=== PATIENT | male | born 1975 | race Caucasian/White ===

== ENCOUNTER 2017-01-19 11:12 | Emergency (ER) | payer BC ==
[2017-01-19] MEDS ORDERED: Tetan/Diph/Pertus SYR(Tdap)* 0.5 ML SYR(BOOSTRIX) use SYR IM ONE (12:13)
[2017-01-19] MEDS ORDERED: Lidocaine 1% MPF* 2 ML VIAL INJ ONE (12:18)
--- NOTE | 2017-01-19 12:24 | UC ---
Laceration HPI - HPI Summary HPI Summary: patient cut the pal of his right hand on a drill bit, needs a tetanus, 2.5 cm laceration, bleeding is controlled. - History Of Current Complaint Chief Complaint: UCLaceration Stated Complaint: HAND LAC Time Seen by Provider: 01/19/17 12:15 Hx Obtained From: Patient Laceration Location: Hand Mechanism Of Injury: Sharp Trauma Onset/Duration: Lasting Hours Severity: Moderate Aggravating Factors: Position, Movement Related History: Dominant Hand Right - Allergies/Home Medications Allergies/Adverse Reactions: Allergies Allergy/AdvReac Type Severity Reaction Status Date / Time cats Allergy Intermediate itchy Uncoded 01/19/17 11:58 eyes, congestion PMH/Surg Hx/FS Hx/Imm Hx Previously Healthy: Yes Endocrine History Of: Denies: Diabetes, Thyroid Disease Cardiovascular History Of: Denies: Cardiac Disorders, Hypertension, Pacemaker/ICD Respiratory History Of: Denies: COPD, Asthma GI/ History Of: Denies: Ulcer, Renal Disease - Surgical History Surgical History: Yes Surgery Procedure, Year, and Place: [facility]; - Family History Known Family History: Positive: Hypertension - Social History Alcohol Use: Daily Substance Use Type: None Smoking Status (MU): Never Smoked Tobacco - Immunization History Most Recent Tetanus Shot: NEEDS ONE Review of Systems Constitutional: Negative Skin: Other - laceration Eyes: Negative ENT: Negative Respiratory: Negative Cardiovascular: Negative Gastrointestinal: Negative Genitourinary: Negative Motor: Negative Neurovascular: Negative Musculoskeletal: Negative Neurological: Negative Psychological: Negative All Other Systems Reviewed And Are Negative: Yes Physical Exam Triage Information Reviewed: Yes Appearance: Well-Appearing, Well-Nourished, Pain Distress Vital Signs: Initial Vital Signs Temp 97.8 F 01/19/17 12:00 Pulse 69 01/19/17 12:00 Resp 16 01/19/17 12:00 Pulse Ox 99 01/19/17 12:00 Vital Signs Reviewed: Yes Eye Exam: Normal Eyes: Positive: Conjunctiva Clear ENT Exam: Normal ENT: Positive: Hearing grossly normal, Pharynx normal, TMs normal Dental Exam: Normal Neck exam: Normal Neck: Positive: Supple, Nontender, No Lymphadenopathy Respiratory Exam: Normal Respiratory: Positive: Chest non-tender, Lungs clear, Normal breath sounds Cardiovascular Exam: Normal Cardiovascular: Positive: RRR, No Murmur, Pulses Normal Abdominal Exam: Normal Abdomen Description: Positive: Nontender, No Organomegaly, Soft Bowel Sounds: Positive: Present Musculoskeletal Exam: Normal Musculoskeletal: Positive: Strength Intact, ROM Intact, No Edema Neurological Exam: Normal Neurological: Positive: Alert, Muscle Tone Normal Psychological Exam: Normal Skin: Positive: Other - msall simple 2.5 cm laceration on palme of right hand Laceration Repair - Laceration Repair 1 Laceration Size After Repair: Length (cm) - 2.5 Modified For Repair: No Type Injection: Local Cleansing Completed Via Routine Prep: No Irrigation With Pressure Irrigation Device: Yes Closure Material: Sutures - 2 Closure Method: Single Layer Suture Of: Skin Suture Type: Chromic Laceration Course/Dx - Course/Dx Course Of Treatment: hx obtained, exam performed, meds reviewed, tetanus updated , laeration cleansed, repaired and dressed. - Differential Dx - Laceration/Wound Differental Diagnoses: Cellulitis, Laceration, Puncture Wound, Tenosynovitis Provider Diagnoses: 2.5 cm laceration of the right hand Discharge - Discharge Plan Condition: Stable Disposition: HOME Patient Education Materials: Care For Your Stitches (ED), Laceration (ED) Additional Instructions: 1. keep the area clean and dry, 2 Return in 7- 10 days for suture removal, sooner for any sign of infection.
== END 2017-01-19 13:05 | disposition home or self-care (01) ==
LOC: UCEAST 11:12
DX: S61.411A Laceration without foreign body of right hand, initial encounter (principal); W27.8XXA Contact with other nonpowered hand tool, initial encounter; Y93.9 Activity, unspecified; Y92.9 Unspecified place or not applicable; Z23 Encounter for immunization
CPT/HCPCS: 12001; 90471; 90715; 99212; G0463

== ENCOUNTER 2017-11-01 21:00 | Observation (INO) | payer BC ==
[2017-11-01] MEDS ORDERED: NS 0.9% 1000 ML* 1,000 ML IV ONE (21:31)
[2017-11-01] MEDS ORDERED: Metoclopramide IV* 5 MG/ML 2 ML VIAL IV SLOW PU ONE (21:32)
[2017-11-01] MEDS ORDERED: Ketorolac INJ* 30 MG/ML 1 ML VIAL IV PUSH ONE (21:32)
[2017-11-01 21:40] LABS: ABS Basophils 0 10^3/ul (0-0.2); ABS Eosinophils 0.2 10^3/ul (0-0.6); ABS Monocytes 1.2 10^3/ul (0-0.8); ABS Neutrophils 8.1 10^3/ul (1.5-7.7); ABS Nucleated RBC 0 10^3/ul; Eosinophil % 1.9 % (0-6); Hematocrit 43 % (42-52); Hemoglobin 14.8 g/dl (14.0-18.0); Lymphocyte % 17.6 % (25-47); Mean Corpuscular HGB Conc 35 g/dl (31-36); Mean Corpuscular Hemoglobin 32 pg (27-31); Mean Corpuscular Volume 91 fL (80-94); Mean Platelet Volume 9 um3 (7.4-10.4); Nucleated Red Blood Cells % 0; Platelet Count 170 10^3/ul (150-450); Red Blood Count 4.69 10^6/ul (4.0-5.4); Red Cell Distribution Width 13 % (10.5-15); White Blood Count 11.6 10^3/ul (3.5-10.8)
[2017-11-01 21:54] LABS: EGFR Non-African American 85.1 (>60)
--- NOTE | 2017-11-01 23:04 | ED ---
Arturo Fuentes Gabriel, scribed for Modesta Connolly MD on 11/01/17 at 2155 . GI/ HPI - HPI Summary HPI Summary: This patient is a 42 year old M presenting to [facility] accompanied by his partner with a chief complaint of right scrotal pain and swelling that began today. The patient rates the pain 3/10 in severity. Patient reports ABD pain, nausea, fever , and diarrhea. Pt just returned from [place] today. - History of Current Complaint Chief Complaint: EDUrogenitalProblems Time Seen by Provider: 11/01/17 21:19 Stated Complaint: GROIN PAIN Hx Obtained From: Patient Onset/Duration: Still Present Timing: Constant Severity: Mild Current Severity: Mild Pain Intensity: 3 Location of Pain: Diffuse Additional Locations for Males: Scrotum, Testicles Associated Signs and Symptoms: Positive: Other: - ABD pain, nausea, fever, and diarrhea - Allergy/Home Medications Allergies/Adverse Reactions: Allergies Allergy/AdvReac Type Severity Reaction Status Date / Time cats Allergy Intermediate itchy Uncoded 01/19/17 11:58 eyes, congestion PMH/Surg Hx/FS Hx/Imm Hx Endocrine/Hematology History: Denies: Hx Diabetes, Hx Thyroid Disease Cardiovascular History: Denies: Hx Hypertension, Hx Pacemaker/ICD Respiratory History: Denies: Hx Asthma, Hx Chronic Obstructive Pulmonary Disease (COPD) GI History: Denies: Hx Ulcer History: Denies: Hx Renal Disease Musculoskeletal History: Reports: Other Musculoskeletal History - ACL repair left knee Sensory History: Denies: Hx Hearing Aid Psychiatric History: Denies: Hx Panic Disorder - Surgical History Surgery Procedure, Year, and Place: Left ACL repair in [facility]; Infectious Disease History: No Infectious Disease History: Reports: Hx Shingles - 2011 Denies: Hx Hepatitis, Hx Human Immunodeficiency Virus (HIV), History Other Infectious Disease, Traveled Outside the [place] in Last 30 Days - Family History Known Family History: Positive: Hypertension - Social History Occupation: Employed Full-time Lives: With Family Alcohol Use: Daily Substance Use Type: Reports: None Smoking Status (MU): Never Smoked Tobacco Review of Systems Positive: Fever Positive: Abdominal Pain, Diarrhea, Nausea Positive: other - right sided tesicular pain All Other Systems Reviewed And Are Negative: Yes Physical Exam - Summary Physical Exam Summary: VITAL SIGNS: Reviewed. GENERAL: Patient is a well-developed and nourished male who is lying comfortable in the stretcher. Patient is not in any acute respiratory distress. HEAD AND FACE: No signs of trauma. No ecchymosis, hematomas or skull depressions. No sinus tenderness. EYES: PERRLA, EOMI x 2, No injected conjunctiva, no nystagmus. EARS: Hearing grossly intact. Ear canals and tympanic membranes are within normal limits. MOUTH: Oropharynx within normal limits. NECK: Supple, trachea is midline, no adenopathy, no JVD, no carotid bruit, no c- spine tenderness, neck with full ROM. CHEST: Symmetric, no tenderness at palpation LUNGS: Clear to auscultation bilaterally. No wheezing or crackles. CVS: Regular rate and rhythm, S1 and S2 present, no murmurs or gallops appreciated. ABDOMEN: Soft, non-tender. No signs of distention. No rebound no guarding, and no masses palpated. Bowel sounds are normal. EXTREMITIES: FROM in all major joints, no edema, no cyanosis or clubbing. NEURO: Alert and oriented x 3. No acute neurological deficits. Speech is normal and follows commands. SKIN: Dry and warm : Right testicle is tender, swollen, and red Triage Information Reviewed: Yes Vital Signs On Initial Exam: Initial Vitals Temp Pulse Resp BP Pulse Ox 99.3 F 92 16 131/86 97 11/01/17 21:08 11/01/17 21:08 11/01/17 21:08 11/01/17 21:08 11/01/17 21:08 Vital Signs Reviewed: Yes Diagnostics - Vital Signs Vital Signs Temp Pulse Resp BP Pulse Ox 11/01/17 21:08 99.3 F 92 16 131/86 97 - Laboratory Result Diagrams: 11/01/17 21:23 11/01/17 21:23 Lab Statement: Any lab studies that have been ordered have been reviewed, and results considered in the medical decision making process. GIGU Course/Dx - Course Assessment/Plan: This patient is a 42 year old M presenting to [facility] accompanied by his partner with a chief complaint of right scrotal pain and swelling that began today. The patient rates the pain 3/10 in severity. Patient reports ABD pain, nausea, fever, and diarrhea. Pt just returned from [place] today. Blood results showed no significant abnormalities. Patient will be signed out to Dr. Santiago awaiting testicular US. - Diagnoses Provider Diagnoses: Testicular pain Discharge - Discharge Plan Condition: Good Disposition: OTHER Discharge Disposition Comment: Signed out to Dr. Santiago Referrals: Mukund Ward MD [Primary Care Provider] - The documentation as recorded by the Arturo dominguez Gabriel accurately reflects the service I personally performed and the decisions made by me, Modesta Connolly MD.
[2017-11-01 23:43] LABS: Urine Appearance Clear; Urine Blood Negative (Negative); Urine Color Yellow; Urine Ketones Trace (Negative); Urine Protein Negative (Negative); Urine Specific Gravity 1.013 (1.010-1.030); Urine Urobilinogen Negative (Negative)
[2017-11-02] MEDS ORDERED: Iohexol 300* (CONTRAST) 10 ML SDV IV ONE (02:15)
--- NOTE | 2017-11-02 05:00 | ED ---
Nate Fuentes Sixian, scribed for Mayur Santiago on 11/01/17 at 2344 . Progress - Progress Note Progress Note: This patient was signed out from Dr. Connolly, pending disposition, awaiting scrotum US which reveals right testicle and epididymis is normal and homogenous without evidence of lesion. There is positive Doppler blood flow to the right testicle. However there is a complex right hydrocele communicating with the inguinal canal. There is also a right inguinal hernia with possible extension into the scrotum. If there is any concern with bowel obstruction due to the hernia and to better characterize the hernia, Ct may be helpful. Left testicle and epididymis are normal and homogenous without evidence of lesion. There is positive Doppler blood flow to the left testicle. Left hydrocele noted. CT abd/ pel reveals markedly thickened distal and terminal ileum bilateral lower quadrants, probably inflammatory bowel disease or infectious enteritis. Minimally dilated small bowel proximal to this in right lower quadrant, probably ileus or partial obstruction. Oral contrast reaches ascending colon. No bowel obstruction, colitis or free air. Appendix not seen. Unremarkable pancreas, kidneys and gallbladder. Small umbilical and bilateral inguinal region hernias containing fat. Small ascites. Small bilateral hydroceles. The patients condition is stable and will be admitted to Dr. Morelos with Dx of abdominal pain and partial SBO. - Results/Orders Results/Orders: US of the scrotum reveal right testicle and epididymis is normal and homogenous without evidence of lesion. There is positive Doppler blood flow to the right testicle. However there is a complex right hydrocele communicating with the inguinal canal. There is also a right inguinal hernia with possible extension into the scrotum. If there is any concern with bowel obstruction due to the hernia and to better characterize the hernia, Ct may be helpful. Left testicle and epididymis are normal and homogenous without evidence of lesion. There is positive Doppler blood flow to the left testicle. Left hydrocele noted. CT abd/pel reveals markedly thickened distal and terminal ileum bilateral lower quadrants, probably inflammatory bowel disease or infectious enteritis. Minimally dilated small bowel proximal to this in right lower quadrant, probably ileus or partial obstruction. Oral contrast reaches ascending colon. No bowel obstruction, colitis or free air. Appendix not seen. Unremarkable pancreas, kidneys and gallbladder. Small umbilical and bilateral inguinal region hernias containing fat. Small ascites. Small bilateral hydroceles. Course/Dx - Diagnoses Provider Diagnoses: Partial small bowel obstruction, Abdominal pain - Provider Notifications Discussed Care Of Patient With: Rolan Morelos Time Discussed With Above Provider: 04:30 Instructed by Provider To: Admit As Inpatient The documentation as recorded by the Nate dominguez Sixian accurately reflects the service I personally performed and the decisions made by me, Mayur Santiago.
[2017-11-02] MEDS ORDERED: traMADol TAB* 50 MG PO PRN (05:41)
[2017-11-02] MEDS ORDERED: Ondansetron INJ* 2 MG/ML VIAL IV PRN (05:41)
[2017-11-02] MEDS ORDERED: HYDROmorphone INJ* 1 MG/ML CARPUJECT SYRINGE IV PRN (05:41)
[2017-11-02] MEDS ORDERED: Acetaminophen TAB* 325 MG PO PRN (05:41)
[2017-11-02] MEDS ORDERED: Melatonin (NF) 3 MG TAB PO PRN (05:41)
[2017-11-02] MEDS ORDERED: NS 0.9% 1000 ML* 1,000 ML IV SCH (05:45)
[2017-11-02] MEDS ORDERED: Omeprazole CAP* 20 MG PO SCH (06:00)
--- NOTE | 2017-11-02 06:08 | HP ---
H&P (Free Text) History and Physical: PCP: Sunny Ward MD Date/Time: 11/02/2017 0500 CC: abdominal & R scrotal pain HPI: Mr Bernal is a 42YO healthy male who flew to [place] Sat Oct 26 returning Sat the . AM [place] the [place] he developed the sudden severe urge to defecate but was able to wait 1/2 hour with difficulty. His stool was soft without black or bloody content. Saturday he had 4-5 episodes of watery diarrhea. Saturday while on the flight home he developed severe abdominal cramping described as "gas" but was unable to pass any. Upon arriving home he noticed his R testicle was swollen to twice its normal size and was tender prompting him to present for evaluation. He has had some mild F/C and sweats along with some nausea, but no emesis. While in the ED he received an US during which the master hearth technician informed him that he thought he saw bowel in a R inguinal hernia, but was able to reduce it after which Mr Bernal states he felt better. Since this, his testicle has nearly returned to normal size and is now only tender with palpation. PMedHx negative Ambulatory Orders Nursing to reconcile. 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[employer] [place]; full code status FamHx: Mother: alive, 78 w/ AFIB; Father: alive, 80 w/ prostate CA; Brother 1: "bowel issues"; Brother 2: , 46 2nd MVA ROS: as above, otherwise reviewed and all were negative vitals: Vital Signs Temp 36.7 C 11/02/17 05:23 Pulse 65 11/02/17 05:23 Resp 15 11/02/17 05:23 BP 105/60 11/02/17 05:23 Pulse Ox 100 11/02/17 05:23 Intake & Output 11/01/17 11/01/17 11/02/17 11:59 23:59 11:59 Intake Total 1000 Balance 1000 Weight 81.647 kg 81.647 kg Intake: IV Fluids 1000 Constitutional: NAD, normally developed, well-nourished white male HEENM: atraumatic; sclera/conjunctiva: anicteric/clear; hearing: clinically intact; oropharynx: clear, mucosa moist Neck: soft tissue: non-tender; thyroid: normal Pulmonary: clear to auscultation bilaterally, good aeration, no accessory muscle use CV: RR/RR, normal S1S2, no carotid bruit, no jugular venous distention, 2+ B DP/ PT, no edema Abdominal: soft, mildly distended, mild diffuse tenderness, no rebound/guarding/ rigidity, normoactive bowel sounds, no hepatosplenomegaly or masses, no costovertebral angle tenderness Genitourinary: normal appearing testes B, R testicle and inguinal canal quite tender to light palpation w/o warmth or induration Musculoskeletal: general: grossly intact, no tenderness w/ palpation; gait: normal, steady Integumental: normal appearance and texture of exposed skin Psychiatric orientation: AA&O to PPS affect: calm mood: pleasant eye contact: good content: reliable responses: timely insight: good Testing: Lab Results 11/01/17 11/01/17 11/01/17 Range/Units 21:23 21:23 23:32 WBC 11.6 H (3.5-10.8) 10^3/ul RBC 4.69 (4.0-5.4) 10^6/ul Hgb 14.8 (14.0-18.0) g/dl Hct 43 (42-52) % MCV 91 (80-94) fL MCH 32 H (27-31) pg MCHC 35 (31-36) g/dl RDW 13 (10.5-15) % Plt Count 170 (150-450) 10^3/ul MPV 9 (7.4-10.4) um3 Neut % (Auto) 70.1 (38-83) % Lymph % (Auto) 17.6 L (25-47) % [place] % (Auto) 10.0 H (0-7) % Eos % (Auto) 1.9 (0-6) % Baso % (Auto) 0.4 (0-2) % Absolute Neuts (auto) 8.1 H (1.5-7.7) 10^3/ul Absolute Lymphs (auto) 2.0 (1.0-4.8) 10^3/ul Absolute Monos (auto) 1.2 H (0-0.8) 10^3/ul Absolute Eos (auto) 0.2 (0-0.6) 10^3/ul Absolute Basos (auto) 0 (0-0.2) 10^3/ul Absolute Nucleated RBC 0 10^3/ul Nucleated RBC % 0 Sodium 136 (133-145) mmol/L Potassium 3.6 (3.5-5.0) mmol/L Chloride 102 (101-111) mmol/L Carbon Dioxide 27 (22-32) mmol/L Anion Gap 7 (2-11) mmol/L BUN 11 (6-24) mg/dL Creatinine 0.96 (0.67-1.17) mg/dL Est GFR ( Amer) 109.4 (>60) Est GFR (Non-Af Amer) 85.1 (>60) BUN/Creatinine Ratio 11.5 (8-20) Glucose 96 (70-100) mg/dL Calcium 9.4 (8.6-10.3) mg/dL Total Bilirubin 0.80 (0.2-1.0) mg/dL AST 21 (13-39) U/L ALT 23 (7-52) U/L Alkaline Phosphatase 50 (34-104) U/L C-Reactive Protein 21.32 H (< 5.00) mg/L Total Protein 7.7 (6.4-8.9) g/dL Albumin 4.5 (3.2-5.2) g/dL Globulin 3.2 (2-4) g/dL Albumin/Globulin Ratio 1.4 (1-3) Urine Color Yellow Urine Appearance Clear Urine pH 5.0 (5-9) Ur Specific [place] 1.013 (1.010-1.030) Urine Protein Negative (Negative) Urine Ketones Trace H (Negative) Urine Blood Negative (Negative) Urine Nitrate Negative (Negative) Urine Bilirubin Negative (Negative) Urine Urobilinogen Negative (Negative) Ur Leukocyte Esterase Negative (Negative) Urine Glucose Negative (Negative) US scrotum: Right testicle and epididymis is normal and homogenous without evidence of lesion. There is positive Doppler blood flow to the right testicle. However there is a complex right hydrocele communicating with the inguinal canal. There is also a right inguinal hernia with possible extension into the scrotum. If there is any concern with bowel obstruction due to hernia and to better characterize the hernia CT may be helpful. CT abd/pel WO, personally reviewed: read as: Markedly thickened distal and terminal ileum bilateral lower quadrants, probably inflammatory bowel disease or infectious enteritis. Minimally dilated small bowel proximal to this in right lower quadrant, probably ileus or partial obstruction. Oral contrast reaches ascending colon. No bowel obstruction, colitis, or free air. Appendix not seen. Unremarkable pancreas, kidneys, and gallbladder. Small umbilical and bilateral inguinal region hernias containing fat. Small ascites. Impression: 42M presenting with abdominal pain, diarrhea, & swollen R testicle clinically most consistent with incarcerated R inguinal hernia s/p reduction during US in ED; however, infectious enteritis w/ secondary ileus is also plausible DIAGNOSIS & PLAN Primary abdominal pain & diarrhea w/ swollen/tender R testicle : dDx likely recently reduced incarcerated R inguinal hernia vs less likely infectious colitis w/ ileus, doubt inflammatory bowel disease : clear liquids : pain control : anti-emetics : IV ciprofloxacin & metronidazole, as he felt he has had some early F/C & sweats w/ mildly elevated WBCs : consider GI consult in AM : supportive care Admission Rational: observation for abdominal pain & diarrhea DVTp: GERSON Code Status: full HCP:
[2017-11-02] MEDS ORDERED: metroNIDAZOLE IV 500 MG/100ML* 500 MG/100 ML BAG IVPB SCH (06:30)
[2017-11-02 06:51] LABS: ABS Basophils 0 10^3/ul (0-0.2); ABS Eosinophils 0.2 10^3/ul (0-0.6); ABS Lymphocytes 1.7 10^3/ul (1.0-4.8); ABS Monocytes 0.9 10^3/ul (0-0.8); ABS Neutrophils 6.5 10^3/ul (1.5-7.7); ABS Nucleated RBC 0 10^3/ul; Eosinophil % 2.2 % (0-6); Hematocrit 43 % (42-52); Hemoglobin 14.5 g/dl (14.0-18.0); Mean Corpuscular HGB Conc 34 g/dl (31-36); Mean Corpuscular Hemoglobin 32 pg (27-31); Mean Corpuscular Volume 93 fL (80-94); Mean Platelet Volume 9 um3 (7.4-10.4); Nucleated Red Blood Cells % 0; Platelet Count 161 10^3/ul (150-450); Red Blood Count 4.59 10^6/ul (4.0-5.4); Red Cell Distribution Width 13 % (10.5-15); White Blood Count 9.3 10^3/ul (3.5-10.8)
[2017-11-02 07:11] LABS: EGFR Non-African American 88.3 (>60)
[2017-11-02] MEDS ORDERED: Ciprofloxacin 400MG IVPREMIX(* 400 MG/200 ML BAG IVPB SCH (08:00)
--- NOTE | 2017-11-02 09:13 | RAD ---
Indication: Right scrotal pain. Real-time sonography of the scrotum was performed. The right testis measures 4.1 x 2.3 x 2.3 cm. No intratesticular masses are noted. The epididymis measures 8 x 9 mm. Small right hydrocele is noted. Doppler interrogation demonstrates normal flow in the right testis. The left testis measures 4.3 x 2.5 x 2.6 cm. Normal intratesticular flow is noted. No masses are noted. The left epididymis measures 8 x 7 mm. Moderate sized hydrocele is noted. There there is suggestion of a hernia or fluid in the right inguinal canal. IMPRESSION: Bilateral valenzuela greater on the left on the right. Fluid appears to communicate with the right inguinal canal. No intratesticular masses are noted.
--- NOTE | 2017-11-02 10:16 | RAD ---
Indication: Abdominal pain. Contrast: Administered 100.2 ml of OMNIPAQUE 300 mg/ml CT of the abdomen and pelvis was performed after oral and IV contrast administration. Coronal and sagittal reconstructed images were obtained. Lung bases demonstrate no pleural fluid, nodules or masses. Heart is of normal size without evidence of pericardial effusion. Liver is normal in size. No focal lesions or intrahepatic ductal dilatation is noted. The spleen is normal in size. The pancreas demonstrates no mass or pancreatic duct dilatation. The gallbladder demonstrates no calcified gallstones, pericholecystic fluid or wall thickening. No adrenal masses are noted. The kidneys demonstrate symmetric nephrograms without focal lesions. The retroperitoneal lymphadenopathy. Aorta and inferior vena cava demonstrates no aneurysmal dilatation. Focal wall thickening of the terminal ileum is noted. There is proximal dilatation of small bowel proximal to the wall thickening. The possibility of inflammatory bowel disease should BE considered. Infectious etiology is considered less likely. A small amount of free fluid is noted in the cul-de-sac. The colon is filled with stool. No evidence of bowel obstruction is noted. Urinary bladder and prostate are grossly unremarkable. IMPRESSION: Wall thickening of the distal terminal ileum with proximal dilatation of small bowel. This is consistent with enteritis. This may represent inflammatory bowel disease although infectious etiology is considered less likely. Small amount of free fluid is noted in the cul-de-sac. No abscess is identified.
[2017-11-02 11:48] VITALS: BP 145/90
--- NOTE | 2017-11-03 03:24 | DS ---
CC: Dr. Ward; Dr. Sams * DISCHARGE SUMMARY: DATE OF ADMISSION: 11/01/17 DATE OF DISCHARGE: 11/02/17 PRIMARY CARE PROVIDER: Dr. Ward. PRIMARY DIAGNOSES: 1. Inguinal hernia, status post reduction. 2. Gastroenteritis. SECONDARY DIAGNOSIS: Include none. MEDICATIONS ON DISCHARGE: Include unchanged from admission and include: 1. [id number] Benadryl. 2. Ibuprofen as needed. PERTINENT LABORATORY DATA: White blood cell count on presentation of 11.6, 9.3 on discharge. CRP 21.3. IMAGING PERFORMED DURING HOSPITAL STAY: Testicular ultrasound, impression: Bilateral valenzuela greater on the left than on the right. Fluid appears to communicate with the right inguinal canal, no intra-testicular masses are noted , moderate hydrocele on the left. There is suggestion of a hernia or fluid in the right inguinal canal. CT abdomen and pelvis; wall thickening of the distal terminal ileum with proximal dilatation of small bowel. This is consistent with enteritis. This may represent inflammatory bowel disease, although infectious etiology is considered less likely. Small amount of free fluid is noted in the cul-de-sac. No abscesses noted. HISTORY OF PRESENT ILLNESS AND HOSPITAL COURSE: This 42-year-old gentleman developed diarrhea, not associated with blood or mucus 1 day prior to presentation and then had a sensation that he had to move his bowels with inability to pass flatus or bowel movement with sudden association of right testicular tenderness and swelling for which he presented to the hospital. It was noted by the glass technician/installer that he had a hernia, which was reduced during ultrasound of the testicle with immediate improvement in patient's pain. CAT scan was performed, which indicated inflammation and approximately 2 feet of the terminal ileum out of proportion to what was described as the hernia approximately tennis ball size. After the ultrasound the patient had several episodes of diarrhea, which decreased in frequency. His clear liquid diet was advanced to full liquid without any difficulty, nausea, vomiting or abdominal pain. He felt well enough to return home. It is thought that the patient likely had a preceding gastroenteritis as the etiology of his diarrhea and some of the inflammation seen on CAT scan followed by an inguinal hernia likely in the setting of the gastroenteritis and/or associated with negative pressure in an airplane. After reduction, his potential obstruction was relieved, but persistent inflammation continued. His imaging indicates inflammatory bowel disease cannot be ruled out; however, this is consistent with rapid resolution without intervening therapy. The patient did receive antibiotics on presentation, discontinued the morning of discharge. He was counseled should any fevers, chills or night sweats return, he is to either call his PCP or return to the hospital. There are no complications of the patient's hospital stay. At followup please; 1. Evaluate for continued resolution of the patient's pain. If similar episode continues or does not resolve, it may warrant repeat imaging and/or referral to Gastroenterology to rule out inflammatory bowel disease. 2. Ensure the patient follows up with surgical consult. 3. No other specific labs or vitals that need followup. TIME SPENT: Greater than 60 minutes were spent on the discharge of this patient , greater than half was spent [id number] with the patient. [id number]/[facility] #: [id number] KATTY
== END 2017-11-02 15:25 | disposition home or self-care (01) ==
LOC: ED 21:00 → SSU 11-02 05:01 → INTOOBSV 11-02 05:01
PROVIDERS: ADMIT Hospitalist; ATTEND Internal Medicine
DX: K40.90 Unilateral inguinal hernia, without obstruction or gangrene, not specified as recurrent (principal); K52.9 Noninfective gastroenteritis and colitis, unspecified; Z79.899 Other long term (current) drug therapy; N50.82 Scrotal pain; N43.3 Hydrocele, unspecified
CPT/HCPCS: 36415; 74177; 76870; 80048; 80053; 81003; 85025; 86140; 96361; 96374; 96375; 99284; A9270-GY; G0378; J0744; J1885; J2765; J3490; Q9967

== ENCOUNTER 2017-11-04 09:27 | Emergency (ER) | payer BC ==
[2017-11-04] MEDS ORDERED: Morphine INJ* 4 MG/ML 1 ML SYRINGE (NEW SYRINGE VERSION) IV ONE (10:37)
[2017-11-04] MEDS ORDERED: Ondansetron INJ* 2 MG/ML VIAL IV ONE (10:37)
[2017-11-04 11:06] LABS: Hematocrit 44 % (42-52); Hemoglobin 14.7 g/dl (14.0-18.0); Mean Corpuscular HGB Conc 34 g/dl (31-36); Mean Corpuscular Hemoglobin 31 pg (27-31); Mean Corpuscular Volume 92 fL (80-94); Mean Platelet Volume 9 um3 (7.4-10.4); Platelet Count 167 10^3/ul (150-450); Red Blood Count 4.73 10^6/ul (4.0-5.4); Red Cell Distribution Width 13 % (10.5-15); White Blood Count 9.4 10^3/ul (3.5-10.8)
[2017-11-04 11:20] LABS: INR 0.98 (0.77-1.02)
[2017-11-04 11:35] LABS: EGFR Non-African American 77.6 (>60)
[2017-11-04 12:41] VITALS: BP 123/78
--- NOTE | 2017-11-05 14:30 | ED ---
Tex Fuentes Angela, scribed for Иван Castillo MD on 11/04/17 at 1027 . GI/ HPI - HPI Summary HPI Summary: This pt is a 42 y/o male presenting to [facility] c/o recurring right groin pain today. Pt reports that he traveled back from [place] on 11/01/17 and had right sided abd pain, right scrotal pain and swelling, nausea, and diarrhea. Denies vomiting. He came to the ED and had testicular US, he was diagnosed with a right inguinal hernia which was reduced by Lunidia on 11/01. He states his pain and swelling felt better after the reduction. Pt presents today with recurrent right testicle swelling and pain. Additionally he states he has had persistent diarrhea and nausea since 3 days ago. Denies vomiting, bloody stools. In the ED 3 days ago, the pt was given Toradol. Pt called Dr. Dupont today and was advised to come back to the ED. - History of Current Complaint Chief Complaint: EDExtremityLower Time Seen by Provider: 11/04/17 10:03 Stated Complaint: PAIN Hx Obtained From: Patient Onset/Duration: Started Days Ago, Still Present Timing: Lasting Days Current Severity: Moderate Pain Intensity: 4 Location of Pain: Groin - right Additional Locations for Males: Scrotum - right, Testicles - right Pain Characteristics: Cramping Associated Signs and Symptoms: Positive: Nausea, Diarrhea. Negative: Vomiting, Constipation, Fever, Abdominal Pain Aggravating Factor(s): Nothing Alleviating Factor(s): Nothing - Additional Pertinent History Primary Care Physician: [id number] - Allergy/Home Medications Allergies/Adverse Reactions: Allergies Allergy/AdvReac Type Severity Reaction Status Date / Time cats Allergy Intermediate itchy Uncoded 01/19/17 11:58 eyes, congestion Home Medications: Home Medications Simethicone 125 mg PO QID PRN 11/04/17 [History Confirmed 11/04/17] PMH/Surg Hx/FS Hx/Imm Hx Endocrine/Hematology History: Denies: Hx Anticoagulant Therapy, Hx Blood Disorders, Hx Blood Transfusions, Hx Bone Marrow Disease, Hx Diabetes, Hx Systemic Lupus Erythematosus, Hx Sickle Cell Disease, Hx Thyroid Disease, Hx Anemia, Hx Unexplained Bleeding, Other Endocrine/Hematological Disorders Cardiovascular History: Denies: Hx Hypercholesterolemia, Hx Hypotension, Hx Hypertension, Hx Pacemaker/ICD Respiratory History: Reports: Hx Seasonal Allergies Denies: Hx Asthma, Hx Chronic Obstructive Pulmonary Disease (COPD) GI History: Denies: Hx Cirrhosis, Hx Crohn's Disease, Hx Diverticulosis, Hx Gall Bladder Disease, Hx Gastroesophageal Reflux Disease, Hx Gastrointestinal Bleed, Hx Hiatal Hernia, Hx Irritable Bowel, Hx Jaundice, Hx Obstructive Bowel, Hx Ileostomy, Hx Pyloric Stenosis, Hx Ulcer, Other GI Disorders History: Denies: Hx Acute Renal Failure, Hx Benign Prostatic Hyperplasia, Hx Chronic Renal Failure, Hx Dialysis, Hx Kidney Infection, Hx Kidney Stones, Hx Renal Disease, Other Problems/Disorders Musculoskeletal History: Reports: Other Musculoskeletal History - ACL repair left knee Denies: Hx Arthritis, Hx Back Problems, Hx Bursitis, Hx Congenital Bone Abnormalities, Hx Fibromyalgia, Hx Gout, Hx Orthopedic Injury, Hx Osteoporosis, Hx Scoliosis, Hx Tendonitis Sensory History: Reports: Hx Contacts or Glasses Denies: Hx Hearing Aid Opthamlomology History: Reports: Hx Contacts or Glasses Psychiatric History: Denies: Hx Anxiety, Hx Attention Deficit Hyperactivity Disorder, Hx Eating Disorder, Hx Depression, Hx Panic Disorder, Hx Post Traumatic Stress Disorder, Hx Inpatient Treatment, Hx [facility] Mental Health Tx, Hx Schizophrenia, Hx Bipolar Disorder, Hx Suicide Attempt, Hx of Violent Episodes Against Others, Hx Substance Abuse - Surgical History Surgery Procedure, Year, and Place: pt arrives here today after plane ride from [place] and c/o some swelling to right scrotal area and tenderness, also c/o feeling "gassy". Did c/o some nausea but denies vomiting, pt states urine normal without hematuria - Immunization History Immunizations Up to Date: Yes Infectious Disease History: No Infectious Disease History: Reports: Hx Shingles - 2011 Denies: Hx Hepatitis, Hx Human Immunodeficiency Virus (HIV), History Other Infectious Disease, Traveled Outside the [place] in Last 30 Days - Family History Known Family History: Positive: Hypertension - Social History Alcohol Use: Daily Alcohol Amount: BEER OR GLASS OF WINE OR BOURBON A DAY Substance Use Type: Reports: None Smoking Status (MU): Never Smoked Tobacco Review of Systems Negative: Fever, Chills Negative: Erythema Negative: Sore Throat Negative: Chest Pain Negative: Shortness Of Breath, Cough Positive: Diarrhea, Nausea. Negative: Abdominal Pain, Vomiting Positive: pain - right testicular, right groin. Negative: dysuria, hematuria Negative: Myalgia, Edema Negative: Rash Neurological: Other - NEG: dizziness All Other Systems Reviewed And Are Negative: Yes Physical Exam - Summary Physical Exam Summary: Constitutional: Well-developed, Well-nourished, Alert. (-) Distressed Skin: Warm, Dry HENT: Normocephalic; Atraumatic Eyes: Conjunctiva normal Neck: Musculoskeletal ROM normal neck. (-) JVD, (-) Stridor, (-) Tracheal deviation Cardio: Rhythm regular, rate normal, Heart sounds normal; Intact distal pulses; The pedal pulses are 2+ and symmetric. Radial pulses are 2+ and symmetric. (-) Murmur Pulmonary/Chest wall: Effort normal. (-) Respiratory distress, (-) Wheezes, (-) Rales Abd: Soft, (-) Tenderness, (-) Distension, (-) Guarding, (-) Rebound : Swollen mass on the scrotum, unable to discern if testicle or bowel. Establishing IV access for attempted reduction. Musculoskeletal: (-) Edema Lymph: (-) Cervical adenopathy Neuro: Alert, Oriented x3 Psych: Mood and affect Normal Triage Information Reviewed: Yes Vital Signs On Initial Exam: Initial Vitals Temp Pulse Resp BP Pulse Ox 98.4 F 93 16 117/77 100 11/04/17 09:30 11/04/17 09:30 11/04/17 09:30 11/04/17 09:30 11/04/17 09:30 Vital Signs Reviewed: Yes Diagnostics - Vital Signs Vital Signs Temp Pulse Resp BP Pulse Ox 11/04/17 09:30 98.4 F 93 16 117/77 100 - Laboratory Result Diagrams: 11/04/17 10:50 11/04/17 10:50 Lab Statement: Any lab studies that have been ordered have been reviewed, and results considered in the medical decision making process. Re-Evaluation - Re-Evaluation First Eval Re-Evaluation Time: 11:40 Comment: Hernia has spontaneously been reduced in Trendelenburg position. GIGU Course/Dx - Course Course Of Treatment: In the ED course the pt was given morphine and zofran. At 11:40, inguinal hernia has spontaneously been reduced in Trendelenburg position. There are no signs of incarceration or strangulation of the hernia. I discussed pt care with Dr. Sams, surgeon, who reports the pt should follow up with Dr. Mcginnis tomorrow morning. I discussed with the pt the BRAT diet and taking Imodium. Pt was discharged home and was given return to ED instructions. - Diagnoses Provider Diagnoses: Inguinal hernia - Physician Notifications Discussed Care Of Patient With: Nasim Sams Time Discussed With Above Provider: 12:10 Instructed by Provider To: Other - I discussed pt care with Dr. Sams, surgeon, who reports the pt should follow up with Dr. Mcginnis tomorrow morning. Discharge - Discharge Plan Condition: Stable Disposition: HOME Patient Education Materials: Inguinal Hernia (ED) Referrals: Mukund Ward MD [Primary Care Provider] - Michael Mcginnis MD [Medical Doctor] - 1 Day (Call today for a follow up appointment for tomorn morning. ) Additional Instructions: Follow up with Dr. Mcginnis, surgeon, tomorrow morning. Call today for an appointment. RETURN TO THE EMERGENCY DEPARTMENT FOR CHANGING OR WORSENING SYMPTOMS. The documentation as recorded by the Tex dominguez Angela accurately reflects the service I personally performed and the decisions made by me, Иван Castillo MD.
== END 2017-11-04 12:49 | disposition home or self-care (01) ==
LOC: ED 09:27
DX: K40.90 Unilateral inguinal hernia, without obstruction or gangrene, not specified as recurrent (principal); R11.0 Nausea; R19.7 Diarrhea, unspecified; N50.811 Right testicular pain
CPT/HCPCS: 36415; 80053; 83605; 85027; 85610; 99283; J2270; J2405

== ENCOUNTER → 2017-11-05 12:48 | Day surgery (SDC) | payer BC ==
[~2017-11-05 12:48] MED LIST: Buffered Lidocaine 0.9% SYRIN* 5 ML/SYR SYRINGE INTRADERM ONE; Buffered Lidocaine 0.9% SYRIN* 5 ML/SYR SYRINGE ONE; Bupivacaine 0.5% SDV PF* 10-30ML VIAL ONE; Dexamethasone IV* 4 MG/ML 1 ML (4 MG) IV SLOW PU ONE; Dexamethasone IV* 4 MG/ML 1 ML (4 MG) ONE; HYDROcodone/ACETAMIN 5-325 MG* 1 TAB PO PRN; HYDROmorphone INJ* 1 MG/ML CARPUJECT SYRINGE IV PRN; Ketorolac INJ* 30 MG/ML 1 ML VIAL ONE; Lidocaine 1% MPF wEPI 200,000* 30 ML SDV ONE; Lidocaine 2% PF * 5 ML VIAL ONE; Metoclopramide IV* 5 MG/ML 2 ML VIAL IV SLOW PU ONE; Metoclopramide IV* 5 MG/ML 2 ML VIAL ONE; Midazolam* 1 MG/ML 2 ML VIAL (2 MG) ONE; Naloxone* 0.4 MG/ML 1 ML VIAL IV PRN; Ondansetron INJ* 2 MG/ML VIAL IV PRN; PROCHLORPERAZINE INJ 5 MG/ML 2 ML VIAL IV PRN; Propofol* 500 MG/50 ML BTL ONE; Sodium Citrate/Citric Acid* 15 ML UDC ONE; Sodium Citrate/Citric Acid* 15 ML UDC PO ONE; ceFAZolin 2 GM in 100 MLS NS (*) BAG IVPB ONE; diPHENhydraMINE IV* 50 MG/ML 1 ml VIAL (BENADRYL) IV PRN; fentaNYL* 50 MCG/ML 2 ML VIAL (100 MCG VIAL) IV PRN; fentaNYL* 50 MCG/ML 2 ML VIAL (100 MCG VIAL) ONE; oxyCODONE/Acetamin 5/325 MG* TAB PO PRN
[2017-11-05 15:46] VITALS: BP 107/78
--- NOTE | 2017-11-06 06:44 | OP ---
CC: Dr. Mukund Ward.* DATE OF OPERATION: 11/05/17 - SDS DATE OF : 71 SURGEON: Michael Mcginnis MD TRAINING AND QUALITY MANAGER: None. ANESTHESIOLOGIST: Dr. Johnson. ANESTHESIA: LMAC anesthesia. PRE-OP DIAGNOSIS: Right inguinal hernia. POST-OP DIAGNOSIS: Right inguinal hernia. OPERATIVE PROCEDURE: Open repair of right inguinal hernia with mesh. DESCRIPTION OF PROCEDURE: The patient was supine in the operating room table. After adequate intravenous sedation, compression stockings, Ned Hugger warmer, and intravenous antibiotics, the groin was clipped and prepped with antiseptic and draped in a sterile fashion. Local infiltrative anesthesia was administered. Approximately 5 cm incision was created in the right groin. Dissection carried down to the tissue layers to the external oblique, which was opened in the direction of its fibers. Cord structures were encircled with a Wanda drain, tented upward. The direct space had no hernia. The indirect space had a hernia, this was dissected free and reduced and a cone mesh plug was placed into the internal ring, sutured in the usual fashion with 2-0 Vicryl. Mesh was placed to the inguinal floor, sutured at the tubercle, tails were split, brought down to the cord structures, tacked down laterally. External oblique was closed over top with 2-0 Vicryl. Nerves were kept out of harm's way. Rodney was closed with 3-0 Vicryl, skin with 4-0 Prolene, followed by sterile dressing. He tolerated the procedure well, was awakened and brought to Recovery in good condition. No complications, no drains. No pathologic specimens. Sponge and instrument counts correct. Estimated blood loss 5 mL. [id number]/[facility] #: [id number] [facility]
== END | disposition home or self-care (01) ==
LOC: OR 12:48
PROVIDERS: ATTEND Surgery
DX: K40.90 Unilateral inguinal hernia, without obstruction or gangrene, not specified as recurrent (principal)
CPT/HCPCS: A9270-GY; C1781; J1100; J1885; J2001; J2250; J2704; J2765; J3010